=== PATIENT | female | born 1960 | race Caucasian/White ===

== ENCOUNTER 2016-11-11 10:53 | Emergency (ER) | payer OTHER ==
[~2016-11-11] VITALS: Ht 154.9 cm; Wt 63.0 kg
[2016-11-11] MEDS ORDERED: FAMOTIDINE 20 MG/2 ML VIAL IV PUSH ONE (11:00)
[2016-11-11] MEDS ORDERED: methylPREDNISolone SOD SUCC 125 MG/2 ML VIAL IVP ONE (11:00)
[2016-11-11] MEDS ORDERED: SODIUM CHLORIDE 0.9% FLUSH 10 ML FLUSH IV FLUSH PRN (11:00)
[2016-11-11] MEDS ORDERED: EPINEPHrine HCL (1:1000) 1 MG/ML VIAL IM ONE (11:00)
[2016-11-11] MEDS ORDERED: diphenhydrAMINE HCL 50 MG/ML VIAL IVP ONE (11:00)
[2016-11-11 11:02] VITALS: BP 160/93; PULSE 96; RESP 18; O2SAT 95
--- NOTE | 2016-11-11 11:10 | PD ---
HPI Chief Complaint: Allergic/Adverse Reaction Time Seen by Provider: 10:59 Travel History International Travel<30 days: No Contact w/Intl Traveler<30days: No Traveled to known affect area: No History of Present Illness HPI 55 years old female complains of itching rash. Patient states that she was bitten by ants on the right foot an hour prior to arrival. Patient states that she has diffuse itching rash all over the body. Patient denies any problem with swallowing. Patient denies any shortness of breath. PFSH Past Medical History ?: Not Social History Tobacco Use: No Allergies-Medications (Allergen,Severity, Reaction): Coded Allergies: No Known Allergies (Unverified , 11/11/16) Reported Meds & Prescriptions Reported Meds & Active Scripts Active Zantac (Ranitidine HCl) 300 Mg Tab 300 Mg PO DAILY Zyrtec (Cetirizine HCl) 10 Mg Tablet 1 Tab PO DAILY Prednisone 20 Mg Tab 20 Mg PO BID Epipen 2-Cody Inj (Epinephrine) 0.3 Mg/0.3 Ml Pfpen 0.3 Mg IM ONCE PRN Review of Systems General / Constitutional: No: Fever Eyes: No: Visual changes HENT: No: Headaches Cardiovascular: No: Chest Pain or Discomfort Respiratory: No: Shortness of Breath Gastrointestinal: No: Abdominal Pain Genitourinary: No: Dysuria Musculoskeletal: No: Pain Skin: Positive Rash, Positive Itching Neurologic: No: Weakness Psychiatric: No: Depression Endocrine: No: Polydipsia Hematologic/Lymphatic: No: Easy Bruising Physical Exam Narrative GENERAL: Well-nourished, well-developed patient. SKIN: Focused skin assessment warm/dry. HEAD: Normocephalic. EYES: No scleral icterus. No injection or drainage. NECK: Supple, trachea midline. No JVD or lymphadenopathy. CARDIOVASCULAR: Regular rate and rhythm without murmurs, gallops, or rubs. RESPIRATORY: Breath sounds equal bilaterally. No accessory muscle use. GASTROINTESTINAL: Abdomen soft, non-tender, nondistended. MUSCULOSKELETAL: No cyanosis, or edema. BACK: Nontender without obvious deformity. No CVA tenderness. Patient had diffuse hives over the face trunk and extremity. No stridor or wheezes. No pharyngeal or tongue swelling or edema. Data Data Last Documented VS Vital Signs Date Time Temp Pulse Resp B/P Pulse Ox O2 Delivery O2 Flow Rate FiO2 11/11/16 11:30 98.0 92 142/81 100 11/11/16 11:02 18 Orders Ecg Monitoring (11/11/16 11:00) Iv Access Insert/Monitor (11/11/16 11:00) Oximetry (11/11/16 11:00) Diphenhydramine Inj (Benadryl Inj) (11/11/16 11:00) Methylprednisolone So Succ Inj (Solumedr (11/11/16 11:00) Famotidine Inj (Pepcid Inj) (11/11/16 11:00) Sodium Chloride 0.9% Flush (Ns Flush) (11/11/16 11:00) Epinephrine (1:1000) Inj (Adrenalin (1:1 (11/11/16 11:00) MDM Medical Decision Making Medical Screen Exam Complete: Yes Emergency Medical Condition: Yes Differential Diagnosis Differential diagnoses including allergic reaction, anaphylactoid reaction. Narrative Course 55 years old female with 18 rash over the face and trunk extremity. Patient got bitten by ants earlier today. Epinephrine 0.3 mg IM. Solu-Medrol 125 mg IV. Benadryl 50 mg IV. Pepcid 20 mg IV. 11:43 AM. Reexamination patient's feeling much better. Rash resolving. No chest pain or shortness of breath. Diagnosis Primary Impression: Allergic reaction Qualified Code: T78.40XA - Allergic reaction, initial encounter Additional Impression: Insect bites Qualified Code: W57.XXXA - Insect bites, initial encounter Patient Instructions: General Instructions Additional Instructions: Take medications as directed. Follow-up with personal physician. Return immediately if any problem with swallowing or shortness of breath. Med/Other Pt SpecificInfo: Prescription(s) given Scripts Ranitidine (Zantac)300 Mg [id number] Mg PO DAILY #10 TAB Ref 0 Prov:Kashmir Fuller MD 11/11/16 Cetirizine HCl (Zyrtec)10 Mg Tablet1 Tab PO DAILY #10 Prov:Kashmir Fuller MD 11/11/16 Prednisone 20 Mg Tab20 Mg PO BID #10 TAB Ref 0 Prov:Kashmir Fuller MD 11/11/16 Epinephrine Inj (Epipen 2-Cody Inj)0.3 Mg/0.3 Ml Pfpen0.3 Mg IM ONCE PRN ( ALLERGIC REACTION) #1 PACK Ref 0 Prov:Kashmir Fuller MD 11/11/16 Disposition: 01 DISCHARGE HOME Condition: Stable [place] Fuller MD Nov 11, 2016 11:10
[2016-11-11 11:19] VITALS: O2SAT 99
[2016-11-11 11:30] VITALS: BP 142/81; PULSE 92; TEMP 98; O2SAT 100
[2016-11-11] MEDS ORDERED: ZANT300T PO (11:45)
[2016-11-11] MEDS ORDERED: EPIP0.3I IM (11:45)
[2016-11-11] MEDS ORDERED: PRED20 PO (11:45)
[2016-11-11] MEDS ORDERED: CETI-1 PO (11:45)
== END 2016-11-11 12:08 | disposition home or self-care (01) ==
LOC: PHED 10:53
DX: T78.40XA Allergy, unspecified, initial encounter (principal); W57.XXXA Bitten or stung by nonvenomous insect and other nonvenomous arthropods, initial encounter
CPT/HCPCS: 96372; 96374; 96375; 99284; J0171; J1200; J2930